=== PATIENT | male | born 1995 | race Caucasian/White ===

== ENCOUNTER 2018-05-03 02:00 | Emergency (ER) | payer SELFPAY ==
[2018-05-03] MEDS: morphine 4 MG/ML VIAL IV (02:50)
[2018-05-03] MEDS: morphine 10 MG INJ IV (03:42)
[2018-05-03] MEDS: ONDANSETRON 4 MG INJ IV (03:42)
[2018-05-03] MEDS ORDERED: DIPHENHYDRAMINE 50 MG INJ (03:46)
[2018-05-03] MEDS: KETOROLAC 30 MG INJ IV (04:22)
== END 2018-05-03 05:13 | disposition home or self-care (01) ==
LOC: E/R 02:00
DX: S02.2XXA Fracture of nasal bones, initial encounter for closed fracture (principal); R40.2142 Coma scale, eyes open, spontaneous, at arrival to emergency department; R40.2252 Coma scale, best verbal response, oriented, at arrival to emergency department; R40.2362 Coma scale, best motor response, obeys commands, at arrival to emergency department; Y09 Assault by unspecified means
CPT/HCPCS: 70450; 70486; 96374; 96375; 96376; 99285-25